=== PATIENT | male | born 1995 | race Caucasian/White ===

== ENCOUNTER 2016-09-19 16:52 | Emergency (ER) | payer BC, OTHER ==
[~2016-09-19] VITALS: Ht 177.8 cm; Wt 104.5 kg
[2016-09-19] MEDS ORDERED: KETOROLAC TROMETHAMINE 60 MG/2 ML VIAL IM STA (17:09)
[2016-09-19] MEDS ORDERED: DIAZEPAM 5MG TAB PO STA (17:09)
[2016-09-19 17:13] VITALS: TEMP 37.1; Ht 177.8 cm; Wt 104.5 kg
[2016-09-19] MEDS ORDERED: IBUP-1050 PO (17:27)
--- NOTE | 2016-09-19 18:04 | DIAGNOSTIC IMAGING REPORT ---
L-SPINE MIN 4 VIEWS ROUTINE CLINICAL HISTORY: Bilateral lumbar radiculopathy, hx of L5 discectomy. COMPARISON: None FINDINGS: Alignment of the lumbar spine is anatomic. Vertebral body heights are maintained. There is no fracture or suspicious lesion. There is mild disc space narrowing at L5-S1. IMPRESSION: 1. No acute lumbar spine fracture or subluxation. 2. Minimal disc space narrowing at L5-S1. Electronically signed by: Thee Peter M.D. 09/19/2016 6:02 PM Dictated Date/Time: 09/19/2016 6:02 PM
[2016-09-19] MEDS ORDERED: HYDROmorphone INJ 0.5 MG/0.5 ML SYR IV STA (18:42)
[2016-09-19] MEDS ORDERED: OXYCODONE/ACETAMINOPHEN 10/325MG TAB PO STA (19:43)
--- NOTE | 2016-09-19 19:53 | EMERGENCY ROOM VISIT NOTE ---
History First contact with patient: 16:56 Chief Complaint: BACK PAIN Stated Complaint: LOWER BACK PAIN History of Present Illness The patient is a 20 year old male who presents to the Emergency Room with complaints of low back pain that radiates down both legs for the past 2 days. Patient states he was playing hockey on Sunday when he felt a twinge in his lower back. Woke up yesterday with severe low back pain that has gotten progressively worse since that time. He describes pain as sharp and spasming, worse with movement, better with rest, unrelieved with Motrin, 9/10. He states the pain radiates down both buttocks and into the lateral thighs. Pain radiates all the way to the ankle and the left leg with some tingling. He denies numbness, weakness, bowel or bladder dysfunction, saddle paresthesias, fever/chills, abdominal pain. Past medical history significant for a discectomy at L5-S1 in 2013 at an outside hospital in [place]. Patient states he has not had any ongoing issues with his back since the surgery. Review of Systems GENERAL: Denies fevers, chills, malaise, fatigue, unintentional weight changes. HEENT: Denies dizziness, visual problems, hearing loss, tinnitus. Denies difficulty swallowing or oral lesions. PULMONARY: Denies cough, shortness of breath, sputum production or hemoptysis. CARDIOVASCULAR: Denies chest pain, palpitations, dyspnea on exertion, orthopnea or peripheral edema. GASTROINTESTINAL: Denies diarrhea, constipation, nausea, vomiting, or abdominal pain. GENITOURINARY: Denies dysuria, frequency, urgency or nocturia. NEUROLOGIC: Denies history of epilepsy, CVA, TIA or chronic headaches. MUSCULOSKELETAL: + Back pain. Denies history of joint tenderness/swelling. SKIN: Denies rashes or lesions. PSYCHIATRIC: Denies history of depression or mental illness. ENDOCRINE: Denies history of diabetes, thyroid disorders, abnormal hair growth or sexual dysfunction. Social History Smoking Status: Never Smoker Current/Historical Medications Scheduled Ibuprofen (Advil), 200-600 MG PO Q4H Methylprednisolone (Medrol Dosepak), 1 PKT PO UD Scheduled PRN Oxycodone/Acetaminophen 5MG/325MG (Percocet 5MG/325MG), 1-2 TABS PO Q4H PRN for Pain Allergies Coded Allergies: No Known Allergies (Unverified , 09/19/16) Physical Exam Vital Signs Date Time Temp Pulse Resp B/P Pulse Ox O2 Delivery O2 Flow Rate FiO2 09/19/16 19:30 64 16 140/87 99 Room Air 09/19/16 17:13 37.1 69 18 153/91 98 Room Air Physical Exam CONSTITUTIONAL: No acute distress but appears to be in pain. Well appearing and well nourished. Alert and oriented X 4 with normal affect. HEENT: Normocephalic, atraumatic. Pupils equal, round and reactive to light, EOMI. TMs normal. Pharynx normal. NECK: Supple, full active range of motion without discomfort. RESPIRATORY: Clear to auscultation bilaterally with no wheezing, crackles, rhonchi or stridor. Equal expansion bilaterally. CARDIOVASCULAR: Regular rate and rhythm with no murmurs, rubs or gallops. Normal peripheral perfusion. No edema. GASTROINTESTINAL: Soft, nontender, nondistended. Bowel sounds present in all quadrants. BACK: No midline or paraspinous tenderness, no bony abnormalities, no step- offs. Range of motion severely limited due to pain. MUSCULOSKELETAL: Full range of motion of all joints without discomfort. INTEGUMENTARY: No rash or other significant dermatologic conditions noted. NEUROLOGIC: Cranial nerves II-XII grossly intact. No focal neurologic deficits noted. Positive straight leg raise bilaterally with radiating pain down the lateral thighs bilaterally. Distal pulses intact bilaterally. Sensation intact bilaterally. Motor intact bilaterally. Bilateral Achilles reflexes 2+ and equal. Unable to assess patellar reflexes due to patient's pain. Medical Decision & Procedures ER Provider Diagnostic Interpretation: L-SPINE MIN 4 VIEWS ROUTINE CLINICAL HISTORY: Bilateral lumbar radiculopathy, hx of L5 discectomy. COMPARISON: None FINDINGS: Alignment of the lumbar spine is anatomic. Vertebral body heights are maintained. There is no fracture or suspicious lesion. There is mild disc space narrowing at L5-S1. IMPRESSION: 1. No acute lumbar spine fracture or subluxation. 2. Minimal disc space narrowing at L5-S1. Medications Administered Medications (Trade) Dose Ordered Sig/Merlin Route Start Time Stop Time Status Last Admin Dose Admin Ketorolac Tromethamine (Toradol Inj) 60 mg NOW STAT IM 09/19/16 17:09 09/19/16 17:10 DC 09/19/16 17:30 60 MG Diazepam (Valium Tab) 10 mg NOW STAT PO 09/19/16 17:09 09/19/16 17:10 DC 09/19/16 17:29 10 MG Hydromorphone HCl (Dilaudid Inj) 1 mg NOW STAT IV 09/19/16 18:42 09/19/16 18:43 DC 09/19/16 18:54 1 MG Oxycodone/ Acetaminophen (Percocet 10-325MG Tab) 1 tab NOW STAT PO 09/19/16 19:43 09/19/16 19:45 DC 09/19/16 20:00 1 TAB Hydromorphone HCl (Dilaudid Inj) 1 mg NOW STAT IV 09/19/16 20:59 09/19/16 21:01 DC 09/19/16 21:17 1 MG Methylprednisolone Sodium Succinate (Solu-Medrol IV) 125 mg NOW STAT IV 09/19/16 20:59 09/19/16 21:01 DC 09/19/16 21:16 125 MG ED Course Orders placed at bedside for IM Toradol and PO Valium. Patient was offered Dilaudid, which he states he prefers not to take if possible. I discussed with Dr. Sellers, who agrees with my assessment and plan. Will obtain plain film lumbar spine given history of previous surgery. Patient reassessed after Toradol and Valium, patient states slightly improved with pain down from a 9 to a 7/10. He is still very hesitant to move. I discussed with patient that I would like to give him a dose of IV Dilaudid for his pain, which he agrees to do. Patient reassessed after IV Dilaudid, pain is now 3/10 and spasming is improved. Patient now able to sit up in the stretcher. I informed him of x- ray results and discussed discharge planning with the patient and his mother. Oral Percocet ordered for now and will plan to send him out with Rx for a few days to continue managing his pain. Patient reassessed after by mouth Percocet. Patient states pain still 3/10, however becomes severe with any attempts at moving. Patient is unable to sit up in the bed, let alone ambulate due to severe spasming pain which she describes as worse in the left leg compared to the right. I discussed at length with Dr. Sellers. Given poor progression of symptoms, decision was made to perform MRI of the lumbar spine. Additional dose of IV Dilaudid as well as IV Solu-Medrol ordered as well. Patient signed out to Libia Cannon PA-C, awaiting MRI results and continued management of patient's pain. If the MRI is nondiagnostic for anything acute, and pain is adequately controlled, plan will be for patient to be discharged home with Rx for Percocet and Medrol Dosepak as previously discussed. Medical Decision CC: Patient presenting with complaint of lower back pain. Differential Diagnosis: Includes, but not limited to lumbar radiculopathy, sciatica, disc herniation, muscle strain, less likely fracture, cauda equina syndrome, epidural abscess. Summary: Patient's symptoms consistent with sciatica. Neurologic exam is unremarkable, patient has normal motor, normal sensation, normal reflexes of the bilateral lower extremities. No midline tenderness of the spine or bony step-offs. Positive straight leg raise bilaterally, worse on the left. No saddle numbness, patient denies any bowel or bladder dysfunction, rectal exam deferred per patient request. Plain film x-ray of lumbar spine is unremarkable. Patient reassessed multiple times throughout ED stay. Patient's pain adequately controlled after Toradol, Valium, Dilaudid, and Percocet. Rx for Medrol Dosepak and Percocet provided to the patient for continued management of his symptoms. Patient to follow up with his PCP upon return to home in the next few days. Awaiting MRI results. Patient was discussed with the attending physician, who agrees with my assessment and disposition. Impression Primary Impression: Acute bilateral low back pain with bilateral sciatica Departure Information Dispostion Home / Self-Care Condition GOOD Prescriptions Oxycodone/Acetaminophen 5MG/325MG (PERCOCET 5MG/325MG) Tab 1-2 TABS PO Q4H Y for Pain for 3 Days, #18 TAB For Initial Treatment Prov: Mary Negrete CRNP 09/19/16 Methylprednisolone (MEDROL DOSEPAK) 4 Mg Rene 1 PKT PO UD for 6 Days, #1 PKT Prov: Mary Negrete CRNP 09/19/16 Referrals No Doctor, Assigned (PCP) Patient Instructions ED Sciatica, My [facility] Additional Instructions You have been treated in the Emergency Department for Back Pain. You have received pain medicine in the emergency department which impairs your ability to operate a vehicle. It is illegal for you to drive after receiving these medicines. You have been prescribed Percocet to be used for pain control. This is a narcotic medication. You cannot drive or consume alcohol while on this medicine. This medicine should only be used for pain that cannot be controlled with [id number] pain medicines. You have been prescribed Medrol Dosepak for 6 days, take per instructions. Always take all medications as prescribed. For pain control, you can use the following yxij-jew-slybeod medicines (if >12 yo): - Regular strength (200 mg/tab) Advil (ibuprofen) 3 tabs every 6-8 hours as needed. Do not exceed a dose of 3200 mg per day. If this is an acute injury, ice can be applied to the area of pain for the first 3 days to help decrease pain and inflammation. After the first 3 days, a heating pad can be used over the area for continued soothing relief. You should schedule a follow-up appointment in 2-3 days with your Primary Care Provider for further evaluation and treatment of your back pain. Return to the Emergency Department if your current symptoms worsen despite treatment course outlined above, or if you develop any of the following symptoms : intractable pain despite aforementioned treatment course, loss of control of your bowel or bladder, numbness or tingling in your groin, or development of a fever. School Instructions Return To School: after follow-up (with PCP or Spine Surgeon) Additional School Instructions: Please excuse Michael from his exams this week.
[2016-09-19] MEDS ORDERED: METH4PAK PO (20:42)
[2016-09-19] MEDS ORDERED: OXYC-57 PO (20:42)
[2016-09-19] MEDS ORDERED: HYDROmorphone INJ 1 MG/ML SYR IV STA (20:59)
[2016-09-19] MEDS ORDERED: METHYLPREDNISOLONE 125 MG VIAL IV STA (20:59)
--- NOTE | 2016-09-19 22:40 | DIAGNOSTIC IMAGING REPORT ---
MRI OF THE LUMBAR SPINE WITHOUT CONTRAST CLINICAL HISTORY: Low back pain with radiculopathy. Inability to walk. Previous back surgery. COMPARISON STUDY: Lumbar spine radiographs September 19, 2016. TECHNIQUE: Utilizing a 1.5 Wendy magnet and dedicated coil, multiplanar, multiecho imaging of the lumbar spine was performed without IV contrast. FINDINGS: For purposes of numbering on this exam, the L5-S1 disc space is assigned to axial image 27 of 30. Alignment of the lumbar spine is anatomic. Vertebral body heights are maintained. There is no marrow replacement or marrow edema. There is no intracanalicular mass or fluid collection. Conus terminates at the mid L1 level. Paravertebral soft tissues are unremarkable. This exam is mildly compromised by motion artifact. Postoperative findings are suboptimally assessed on this unenhanced exam but are noted within the lower lumbar spine, likely at the L5-S1 level. L1-2: Central canal and neural foramen are patent. L2-3: Central canal and neural foramen are patent. L3-4: Central canal and neural foramen are patent. L4-5: There is a moderate-sized central disc protrusion. This results in moderate narrowing of the central canal and lateral recesses. The neural foramen are patent. L5-S1: There is disc space narrowing. There is a central annular tear with a small central disc protrusion. There is mild narrowing of the central canal and lateral recesses. The neural foramen are patent. IMPRESSION: 1. Moderate-sized central disc protrusion at L4-L5 that results in moderate narrowing of the central canal and lateral recesses. 2. Central annular tear at L5-S1 with a small central disc protrusion. Mild narrowing of the central canal and lateral recesses at this level. 3. Postsurgical findings within the lower lumbar spine, likely at the L5-S1 level. Electronically signed by: Thee Peter M.D. 09/19/2016 10:38 PM Dictated Date/Time: 09/19/2016 10:33 PM
--- NOTE | 2016-09-20 00:04 | EMERGENCY ROOM VISIT NOTE ---
ED Visit Note Care of this patient was signed out to me by MARISA Gramajo at change of shift. At that time, the patient was awaiting MRI of the lumbar spine. Lumbar spine MRI was completed and read by radiology with the findings below. I did discuss this case with Dr. Oliver, the orthopedic spine surgeon [employer] worker. He felt that as long as the patient was stable for discharge, he could be treated with a Medrol Dosepak with close follow-up as an outpatient. Findings were discussed with the patient and his mother. The patient did feel better after receiving several medications while in the emergency department. He was assisted to his vehicle by the nurses. He will return here for any worsening or new/concerning symptoms. MRI OF THE LUMBAR SPINE WITHOUT CONTRAST FINDINGS: For purposes of numbering on this exam, the L5-S1 disc space is assigned to axial image 27 of 30. Alignment of the lumbar spine is anatomic. Vertebral body heights are maintained. There is no marrow replacement or marrow edema. There is no intracanalicular mass or fluid collection. Conus terminates at the mid L1 level. Paravertebral soft tissues are unremarkable. This exam is mildly compromised by motion artifact. Postoperative findings are suboptimally assessed on this unenhanced exam but are noted within the lower lumbar spine, likely at the L5-S1 level. L1-2: Central canal and neural foramen are patent. L2-3: Central canal and neural foramen are patent. L3-4: Central canal and neural foramen are patent. L4-5: There is a moderate-sized central disc protrusion. This results in moderate narrowing of the central canal and lateral recesses. The neural foramen are patent. L5-S1: There is disc space narrowing. There is a central annular tear with a small central disc protrusion. There is mild narrowing of the central canal and lateral recesses. The neural foramen are patent. IMPRESSION: 1. Moderate-sized central disc protrusion at L4-L5 that results in moderate narrowing of the central canal and lateral recesses. 2. Central annular tear at L5-S1 with a small central disc protrusion. Mild narrowing of the central canal and lateral recesses at this level. 3. Postsurgical findings within the lower lumbar spine, likely at the L5-S1 level. Electronically signed by: Thee Peter M.D.
[2016-09-20 00:05] VITALS: BP 139/85; PULSE 76; O2SAT 99
== END 2016-09-20 00:19 | disposition home or self-care (01) ==
LOC: EDBD 16:52 → C.EDC 16:54
DX: M54.41 Lumbago with sciatica, right side (principal); M54.42 Lumbago with sciatica, left side